=== PATIENT | male | born 1970 | race Caucasian/White ===

== ENCOUNTER 2016-10-24 09:45 | Day surgery (SDC) | payer OTHER ==
[~2016-10-24] VITALS: Ht 180.3 cm; Wt 95.9 kg
[~2016-10-24 09:45] MED LIST: FLUO20CA4 PO; LACTATED RINGER'S 1000 ML INJ 1,000 ML IV ONE; LISI20TA PO; MOBI15TA PO; NEOSTIGMINE 3 MG/3 ML SYR IV ONE; ONDANSETRON HCL 4 MG/2 ML VIAL IV PUSH ONE; PHENYLEPH/NS 1000 MCG/10 ML SYR IV ONE; PROPOFOL 200 MG/20 ML AMP IV ONE; ePHEDrine/NS 25 MG/5 ML SYR IV ONE
[2016-10-24] MEDS ORDERED: SODIUM CHLORID 0.9% 500 ML IV SCH (10:15)
[2016-10-24] MEDS ORDERED: LACTATED RINGER'S 1000 ML INJ 500 ML IV SCH (10:15)
[2016-10-24] MEDS ORDERED: INSULIN HUMAN REGULAR 1,000 UNITS/10 ML VIAL SQ PRN (10:15)
[2016-10-24] MEDS ORDERED: METOPROLOL TARTRATE 25 MG TAB PO PRN (10:15)
[2016-10-24] MEDS ORDERED: LACTATED RINGER'S 1000 ML IV SCH (10:15)
[2016-10-24] MEDS ORDERED: ceFAZolin 1,000 MG/NS 100 ML IV SCH ×2 (10:30)
[2016-10-24 10:48] VITALS: BP 137/84; PULSE 72; RESP 18; TEMP 98.3; O2SAT 98
[2016-10-24] MEDS ORDERED: ALPR.25 PO (11:00)
[2016-10-24] MEDS ORDERED: HYDR-3535 PO (11:00)
[2016-10-24 11:05] LABS: AUTOMATED NEUTROPHIL # 4.4 TH/MM3 (1.8-7.7); BASOPHIL # 0.1 TH/MM3 (0-0.2); BASOPHIL % 0.9 % (0.0-2.0); EOSINOPHIL # 0.2 TH/MM3 (0-0.4); EOSINOPHIL % 2.6 % (0.0-4.0); HEMATOCRIT 48.6 % (39.0-51.0); HEMO FLAGS DIFF FINAL; LYMPH % 29.5 % (9.0-44.0); LYMPHOCYTE # 2.2 TH/MM3 (1.0-4.8); MEAN CELL VOLUME 95.5 FL (80.0-100.0); MEAN CORPUSCULAR HEMOGLOBIN 33.3 PG (27.0-34.0); MEAN CORPUSCULAR HGB CONC 34.8 % (32.0-36.0); MONO % 8.4 % (0.0-8.0); NEUT % 58.6 % (16.0-70.0); PLATELET COUNT 270 TH/MM3 (150-450); RED BLOOD COUNT 5.09 MIL/MM3 (4.50-5.90); RED CELL DISTRIBUTION WIDTH 13.3 % (11.6-17.2); WHITE BLOOD COUNT 7.6 TH/MM3 (4.0-11.0)
[2016-10-24] MEDS ORDERED: MINERAL OIL 10 ML VIAL ONE (11:34)
[2016-10-24] MEDS ORDERED: BACITRACIN TOP OINT 15 GM TUBE ONE ×2 (11:34→11:35)
[2016-10-24] MEDS ORDERED: BUPIVACAINE HCL PF 0.5% 30 ML VIAL ONE (11:34)
[2016-10-24] MEDS ORDERED: LIDOCAINE HCL 1% 50 ML VIAL ONE (11:34)
[2016-10-24] MEDS ORDERED: MIDAZOLAM HCL 2 MG/2 ML VIAL ONE ×2 (11:46→15:05)
[2016-10-24] MEDS ORDERED: FAMOTIDINE 20 MG/2 ML VIAL ONE (11:46)
[2016-10-24] MEDS ORDERED: fentaNYL CITRATE 250 MCG/5 ML AMP ONE ×2 (11:46→15:05)
[2016-10-24] MEDS ORDERED: ACETAMINOPHEN 1000 MG/100 ML VIAL IV ONE (11:46)
[2016-10-24] MEDS ORDERED: DEXAMETHASONE SOD PHOS 4 MG/ML VIAL ONE (11:46)
[2016-10-24] MEDS ORDERED: LIDOCAINE HCL 2% PF SOLN 10 ML VIAL ONE ×2 (12:37→12:42)
[2016-10-24] MEDS ORDERED: HYDROmorphone HCL PF 2 MG/ML VIAL ONE (15:05)
[2016-10-24] MEDS ORDERED: ceFAZolin 2 GM PREMIX 50 ML ONE (16:00)
[2016-10-24] MEDS ORDERED: LIDOCAINE HCL 2% 50 ML VIAL ONE (17:16)
[2016-10-24] MEDS ORDERED: *morphine SULFATE 8 MG/ML PERIprocedure ONLY ONE (18:00)
[2016-10-24] MEDS ORDERED: ONDANSETRON HCL 4 MG/2 ML VIAL IV PUSH PRN (18:00)
[2016-10-24] MEDS ORDERED: HYDROmorphone HCL PF 1 MG/ML VIAL IV PRN (18:00)
[2016-10-24] MEDS ORDERED: OXYC1CAP PO (18:05)
[2016-10-24] MEDS ORDERED: BACT800T5 PO (18:05)
[2016-10-24] MEDS ORDERED: *RESP: ALBUTEROL 2.5 MG/3 ML NEB (PRN) PERIprocedural Use ONLY NEB ONE (18:07)
[2016-10-24] MEDS ORDERED: DO NOT ADM ANY ANTICOAGULANT DRUGS XX PRN (18:15)
[2016-10-24 18:30] VITALS: BP 106/53; PULSE 104; RESP 12; O2SAT 92
--- NOTE | 2016-10-27 12:14 | MP ---
cc: USHA SERNA DATE OF SURGERY: 10/24/2016 PREOPERATIVE DIAGNOSIS Chronic right distal biceps rupture. POSTOPERATIVE DIAGNOSIS Chronic right distal biceps rupture. PROCEDURE 1. Reconstruction right distal biceps with Achilles tendon allograft and Arthrex endobutton and interference screw. 2. Interpretation of right elbow xrays, fluoroscopy throughout the procedure by the surgeon SURGEON Dr. Usha Serna. ANESTHESIA General and local. TOURNIQUET TIME 86 minutes at 250 mmHg. IMPLANTS 1. Arthrex endobutton. 2. Arthrex interference screw. 3. Achilles tendon allograft. INDICATIONS FOR PROCEDURE Diego Aguilar is a 46-year-old right-hand dominant male who states he was lifting heavy object approximately two months ago when he felt a pop in his right elbow. He did not present to the office until this week. He had a prior left distal biceps repair by Dr. Johnson in September of 2007 and then had a MRSA infection several months later. At this point he is doing well from the left side. He does smoke two packs per day. MRI showed retraction of the biceps tendon of 7 cm proximally with complete tear of the long head of the biceps off of the radial tuberosity. Treatment options were discussed with the patient including conservative management versus surgical intervention and he requested surgical intervention. He understands he is at high risk for wound complications, infection, nerve palsy, stiffness, repeat rupture, pain and he elected to proceed. DESCRIPTION OF PROCEDURE The patient was identified in the preop holding area, correct extremity was marked. The patient was taken to the operating room where anesthesia was induced. The right upper extremity was prepped and draped in normal sterile fashion. A sterile tourniquet was utilized, initially a distal incision was made over the proximal forearm. Tourniquet was inflated to 250 mmHg for 86 minutes. The radial tuberosity was identified. The short head of the biceps was intact. There was significant scar tissue. The lateral antebrachial cutaneous nerve as well as the radial artery and posterior osseous nerve were protected throughout the procedure. Due to the significant retraction the decision was made to make a S-shaped incision over the antebrachial fossa. Again, care was taken to protect the arteries and nerves. The biceps was identified and was significantly retracted. I was unable to pull the remaining biceps tendon to the tuberosity so decision was made to use Achilles tendon allograft. There was a very small stump on the biceps tendon. A pulvertaft weave was performed using the Achilles tendon with 4-0 Fiber-wire. Then the distal aspect of the tendon was shaped to a 7 mm, this was then passed under the artery and using the Arthrex kit, the guidewire was placed and under fluoroscopy the insertion site was visualized on the radial tuberosity. Throughout this part of the procedure the arm was supinated by the assistant womens volleyball coach at all times. No retractors were placed on the radial side of the radius throughout the procedure. Then a 8 mm reamer was used on the near cortex and the wound was irrigated and debrided. Then the fiber-loop and endobutton was passed through the hole and then flipped on the posterior aspect of the radius. This was confirmed again under fluoroscopy. Then a 7 mm interference screw was placed. The tourniquet was released. The patient had 2+ radial pulse. The arm could extend freely to approximately 20 degrees of extension with full supination and pronation. The wound was irrigated and closed. The patient was placed into a long-arm splint with the elbow flexed to approximately 80 degrees and the patient was awoken from anesthesia without any complications. He will be in a hinged elbow brace for likely six weeks. He understands he should have no lifting of the right upper extremity for approximately three months. Again, he understands he is at high risk for infection, nerve palsy, pain, stiffness. MD EPIFANIO Rodríguez/JUANL /5:05 PM /11:49 AM PAC[facility]CO
== END 2016-10-24 19:02 | disposition home or self-care (01) ==
LOC: HSDC 09:45
PROVIDERS: ATTEND Orthopaedic Surgery
DX: M66.821 Spontaneous rupture of other tendons, right upper arm (principal); M75.21 Bicipital tendinitis, right shoulder; I10 Essential (primary) hypertension; F17.210 Nicotine dependence, cigarettes, uncomplicated; Z86.14 Personal history of Methicillin resistant Staphylococcus aureus infection
CPT/HCPCS: 01710; 24342; 76000; 85025; 94664; J0131; J0690; J1100; J1170; J2250; J2270; J2370; J2405; J2710; J3010; J7120; J7613